=== PATIENT | male | born 1990 | race Caucasian/White ===

== ENCOUNTER 2021-03-18 21:05 | Emergency (ER) | payer OTHER ==
[~2021-03-18] VITALS: Ht 170.2 cm; Wt 87.5 kg
[2021-03-18 21:06] VITALS: BP 136/76
[2021-03-18] MEDS ORDERED: DIVA500T94 (21:13)
[2021-03-18] MEDS ORDERED: CLIN300C6 (21:13)
[2021-03-18] MEDS ORDERED: RISP-7 (21:14)
[2021-03-18] MEDS ORDERED: BACTRIM 160MG/800MG DS TAB PO ONE (22:10)
[2021-03-18] MEDS ORDERED: BACT800T5 PO (23:00)
--- NOTE | 2021-03-18 23:22 | REPVR ---
PROCEDURE INFORMATION: Exam: US Right Non-Vascular Joint or Other Extremity Structure Exam date and time: 03/18/2021 11:08 PM Age: 30 years old Clinical indication: Mass or lump; Other: RT antecubital fossa; Additional info: Antecubital area for possible abscess TECHNIQUE: Imaging protocol: Right US joint or other nonvascular extremity structure or structures. Real-time ultrasound with image documentation. Limited study. Exam focused on the upper extremity in the region of clinical interest. COMPARISON: No relevant prior studies available. FINDINGS: Soft tissues: Subcutaneous edema in the right antecubital fossa with complex collection measuring 2.2 x 2.2 x 1.5 cm. There is surrounding hyperemia and a tract to the skin. IMPRESSION: Right antecubital fossa abscess measuring 2.2 x 2.2 x 1.5 cm with surrounding hyperemia and tract to the skin. Electronically signed by: Naveen Hardin On 03/18/2021 23:21:27 PM
== END 2021-03-18 23:10 | disposition left against medical advice (07) ==
LOC: M ED 21:05 → EDSEX 21:05 → M ED 23:10
DX: L02.413 Cutaneous abscess of right upper limb (principal); Z53.20 Procedure and treatment not carried out because of patient's decision for unspecified reasons; F31.9 Bipolar disorder, unspecified; J45.909 Unspecified asthma, uncomplicated; F17.200 Nicotine dependence, unspecified, uncomplicated; F19.10 Other psychoactive substance abuse, uncomplicated; Z79.899 Other long term (current) drug therapy; Z91.018 Allergy to other foods

== ENCOUNTER 2025-06-28 09:28 | Emergency (ER) | payer OTHER, SELFPAY ==
[~2025-06-28] VITALS: Ht 170.2 cm; Wt 113.8 kg
[~2025-06-28 09:28] MED LIST: BACT800T5 PO; CLIN-250; DIVA-41; RISP0.5T82
[2025-06-28 09:29] VITALS: BP 145/82; TEMP 98; O2SAT 97
[2025-06-28] MEDS: NEOSPORIN OINT 0.9 GM PKT TOP ONE (10:37)
[2025-06-28] MEDS: LIDOCAINE W/EPINEPHrine 1% 20 ML VIAL SC ONE (10:37)
[2025-06-28] MEDS ORDERED: CEPH500C PO (11:01)
== END 2025-06-28 11:10 | disposition home or self-care (01) ==
LOC: M ED 09:28
DX: S61.411A Laceration without foreign body of right hand, initial encounter (principal); W26.0XXA Contact with knife, initial encounter; F17.200 Nicotine dependence, unspecified, uncomplicated; J45.909 Unspecified asthma, uncomplicated; F19.10 Other psychoactive substance abuse, uncomplicated; F41.9 Anxiety disorder, unspecified; F31.9 Bipolar disorder, unspecified; Z91.018 Allergy to other foods; Z79.2 Long term (current) use of antibiotics; Z79.899 Other long term (current) drug therapy; Y93.89 Activity, other specified; Y92.009 Unspecified place in unspecified non-institutional (private) residence as the place of occurrence of the external cause; Y99.9 Unspecified external cause status

== ENCOUNTER 2025-09-04 13:36 | Emergency (ER) | payer OTHER, SELFPAY ==
[~2025-09-04] VITALS: Ht 170.2 cm; Wt 115.3 kg
[~2025-09-04 13:36] MED LIST changes: +CEPH500C PO
[2025-09-04 13:38] VITALS: BP 137/81; TEMP 97.8; O2SAT 98
[2025-09-04] MEDS ORDERED: METHOCARBAMOL 1,000 MG/10 ML VIAL IV ONE (14:55)
[2025-09-04] MEDS ORDERED: KETOROLAC 30 MG/ML 1 ML VIAL IV ONE (14:55)
[2025-09-04 15:13] LABS: KETONE, URINE AUTO RFX NEGATIVE (NEGATIVE); MUCUS, URINE RFX SMALL (NEGATIVE); NITRITE, URINE AUTO RFX NEGATIVE (NEGATIVE); RBC, URINE AUTO RFX 4 /HPF (0-3); SQUAM EPITHELIAL CELL UR AURFX 5 /HPF (0-6)
[2025-09-04 15:14] LABS: LEUKOCYTE ESTERASE UR AUTO RFX 2+ (NEGATIVE); WBC, URINE AUTO RFX 37 /HPF (0-3)
[2025-09-04 15:28] LABS: BASO # 0.0 10^3/uL (0.0-0.2); BASO % 0.6 % (0.0-1.0); EOS # 0.1 10^3/uL (0.0-0.5); EOS % 1.1 % (0.0-3.0); LYMPH # 1.5 10^3/uL (1.5-5.0); LYMPH % 20.8 % (24.0-44.0); MONO # 0.9 10^3/uL (0.0-0.8); MONO % 13.3 % (2.0-8.0); NEUTROPHILS # 4.5 10^3/uL (1.5-8.5); NEUTROPHILS % 63.8 % (36.0-66.0); PLATELET COUNT, AUTOMATED 260 10^3/uL (150-450)
[2025-09-04 15:52] LABS: CALCIUM LEVEL 8.7 MG/DL (8.5-10.1); CARBON DIOXIDE LEVEL 24 MMOL/L (20-31); CHLORIDE LEVEL 105 MMOL/L (98-107); CREATININE FOR GFR 0.86 MG/DL (0.70-1.30); GLOMERULAR FILTRATION RATE > 90.0 (>60); POTASSIUM SERUM 5.7 MMOL/L (3.5-5.1); SODIUM LEVEL 138 MMOL/L (136-145)
== END 2025-09-04 16:35 | disposition left against medical advice (07) ==
LOC: M ED 13:36
DX: R10.9 Unspecified abdominal pain (principal); F17.200 Nicotine dependence, unspecified, uncomplicated; N28.1 Cyst of kidney, acquired; Z87.442 Personal history of urinary calculi; Z91.018 Allergy to other foods; Z79.2 Long term (current) use of antibiotics; Z79.899 Other long term (current) drug therapy; Z53.9 Procedure and treatment not carried out, unspecified reason